=== PATIENT | female | born 1985 | race Caucasian/White ===

== ENCOUNTER 2018-09-22 04:34 | Emergency (ER) | payer BC ==
[2018-09-22] MEDS ORDERED: Ondansetron PF 4 MG/2 ML Vial ONE (04:58)
[2018-09-22] MEDS ORDERED: Lorazepam 2 MG/ML VIAL ONE (07:07)
== END 2018-09-22 07:45 | disposition home or self-care (01) ==
LOC: ERS 04:34
DX: F10.129 Alcohol abuse with intoxication, unspecified (principal); Y90.8 Blood alcohol level of 240 mg/100 ml or more
CPT/HCPCS: 80307; 96361; 96374; 96375; J2060; J2405

== ENCOUNTER 2020-04-20 12:13 | Outpatient (CLI) | payer BC ==
--- NOTE | 2020-04-20 13:42 | MRI ---
MRI of thebrain without contrast: 04/20/2020 COMPARISON:None available HISTORY:CSF leak, rhinorrhea, watery nasal discharge, "swollen sinuses" TECHNIQUE: Multiplanar multisequence MR imaging of thebrain without contrast Findings:The diffusion weighted imaging demonstrates no evidence for acute infarction. The axial grad ient echo imaging demonstrates no evidence for intracranial hemorrhage. The frontal sinuses, ethmoid air cells, maxillary sinuses, and sphenoid sinuses are completely opacif ied with T2 hyperintense internal secretions and scattered areas of mucosal thickening. The mastoid air cells appear well aerated. No midline shift or mass effect. No ventricular enlargement is seen. Arterial flow voids at the axial level of the skull base appear grossly unremarkable on the T2-weight ed imaging. Paranasal sinus opacification has progressed significantly since a CT examination of the paranasal si nuses performed 02/16/2020. IMPRESSION:Extensive worsening paranasal sinus opacification. No discrete intracranial abnormality is seen. Perhaps a CT of the paranasal sinuses prior to and following the injection of intrathecal contrast me janet would be beneficial to evaluate for a possible location of a CSF leak.
== END 2020-04-20 12:14 | disposition home or self-care (01) ==
LOC: BICMRI 12:13
PROVIDERS: ATTEND Psychiatry & Neurology Neurology
DX: J34.89 Other specified disorders of nose and nasal sinuses (principal); G96.00 Cerebrospinal fluid leak, unspecified
CPT/HCPCS: 70551

== ENCOUNTER 2021-08-17 10:40 | Outpatient (CLI) | payer BC | END 2021-08-17 10:41 | disposition home or self-care (01) | LOC: CT 10:40 | DX: J32.4 Chronic pansinusitis (principal); R09.82 Postnasal drip ==